=== PATIENT | female | born 2000 | race Caucasian/White ===

== ENCOUNTER 2023-03-19 11:38 | Emergency (ER) | payer MEDICAID ==
[2023-03-19] MEDS ORDERED: Bacitracin 1 PK ONE (12:48)
== END 2023-03-19 13:28 | disposition home or self-care (01) ==
LOC: ERS 11:38
DX: O9A.212 Injury, poisoning and certain other consequences of external causes complicating pregnancy, second trimester (principal); T23.262A Burn of second degree of back of left hand, initial encounter; T23.252A Burn of second degree of left palm, initial encounter; T31.0 Burns involving less than 10% of body surface; X12.XXXA Contact with other hot fluids, initial encounter; Y93.G3 Activity, cooking and baking; Z3A.20 20 weeks gestation of pregnancy
CPT/HCPCS: 96360; G0390